=== PATIENT | male | born 1945 ===

== ENCOUNTER → 2018-03-12 | Outpatient (REF) | payer MEDICARE, OTHER ==
[2018-03-12 12:20] LABS: PLATELET COUNT, AUTOMATED 319 K/uL (150-450)
== END ==
LOC: ZZSTITCHES 11:45
PROVIDERS: ATTEND Physician Assistant
DX: R53.83 Other fatigue (principal); R06.02 Shortness of breath
CPT/HCPCS: 82040; 82247; 82310; 82374; 82435; 82565; 82947; 84075; 84132; 84155; 84295; 84450; 84460; 84484; 84520; 85025; 85379